=== PATIENT | male | born 1950 | race Two or more races ===

== ENCOUNTER 2017-11-03 11:58 | Emergency (ER) | payer OTHER ==
[~2017-11-03] VITALS: Ht 172.7 cm; Wt 86.2 kg
[2017-11-03 12:02] VITALS: BP 161/89
== END 2017-11-03 12:22 | disposition home or self-care (01) ==
LOC: ER 12:15
DX: M25.461 Effusion, right knee (principal); I10 Essential (primary) hypertension; F17.200 Nicotine dependence, unspecified, uncomplicated
CPT/HCPCS: A4606; Z7610

== ENCOUNTER 2019-09-08 13:28 | Emergency (ER) | payer OTHER ==
[~2019-09-08] VITALS: Ht 172.7 cm; Wt 84.4 kg
--- NOTE | 2019-09-08 14:02 | NUR ---
TOOK OVER PT CARE. PT C/O "Cough/congestion/cold started over weekend." EVALUATED THE PT. INF SENT TO LAB. AWAITING ORDERS. VSS. NO ACUTE DISTRESS NOTED.
--- NOTE | 2019-09-08 15:24 | NUR ---
Patient discharged to home in stable condition. Written and verbal after care instructions given. Patient verbalizes understanding of instruction and RX. PT ambulatory with a steady gait. PT told to follow up with MD. [email or web address].
[2019-09-08 15:25] VITALS: BP 124/78
== END 2019-09-08 15:25 | disposition home or self-care (01) ==
LOC: ER 13:28
DX: J20.9 Acute bronchitis, unspecified (principal); I10 Essential (primary) hypertension; F17.200 Nicotine dependence, unspecified, uncomplicated
CPT/HCPCS: 71045-TC

== ENCOUNTER 2024-07-20 08:35 | Emergency (ER) | payer MEDICARE, MEDICAID ==
[~2024-07-20] VITALS: Ht 172.7 cm; Wt 72.6 kg
[2024-07-20 08:52] VITALS: BP 160/76; TEMP 97.6
[2024-07-20] MEDS ORDERED: CIPR7.5D9 EACH EAR (09:16)
[2024-07-20 09:18] VITALS: O2SAT 98
== END 2024-07-20 09:23 | disposition home or self-care (01) ==
LOC: ER 08:51
DX: H60.91 Unspecified otitis externa, right ear (principal); H92.01 Otalgia, right ear; E78.5 Hyperlipidemia, unspecified; I10 Essential (primary) hypertension